=== PATIENT | male | born 1985 | race Caucasian/White ===

== ENCOUNTER 2019-05-02 03:35 | Emergency (ER) | payer BC ==
--- NOTE | 2019-05-02 03:50 | ED ---
General Adult HPI - General Chief complaint: Extremity Injury, Lower Stated complaint: ankle injury Time Seen by Provider: 05/02/19 03:36 Source: patient Mode of arrival: ambulatory Limitations: no limitations - History of Present Illness Initial comments: Dictation was produced using [employer] dictation software. please excuse any gramma tical, word or spelling errors. Chief Complaint: 33-year-old male presents with right ankle pain. History of Present Illness: His 33-year-old male he is calm and home going up the stairs when he inverted his right ankle. States he has pain towards his right lateral fibula and right lateral malleolus. Patient states he has significant pain since the day of injury. He did hear crunching sound when he hurt himself. The ROS documented in this emergency department record has been reviewed and confirmed by me. Those systems with pertinent positive or negative responses have been documented in the HPI. All other systems are other negative and/or noncontributory. PHYSICAL EXAM: General Impression: Alert and oriented x3, not in acute distress HEENT: Normocephalic atraumatic, extra-ocular movements intact, pupils equal and reactive to light bilaterally, mucous membranes moist. Cardiovascular: Heart regular rate and rhythm, S1&S2 audible, no murmurs, rubs or gallops Chest: Lungs clear to auscultation bilaterally, no rhonchi, no wheeze, no rales Abdomen: Bowel sounds present, abdomen soft, non-tender, non-distended, no organomegaly Musculoskeletal: Pulses present and equal in all extremities, no peripheral edema Right ankle: Slight tenderness over the right distal fibula and lateral malleolus. No pain with flexion of the forefoot, no midfoot pain Motor: no focal deficits noted Neurological: CN II-XII grossly intact, no focal motor or sensory deficits noted Skin: Intact with no visualized rashes Psych: Normal affect and mood ED course: 33-year-old male presents with right ankle pain after inversion injury. Signs upon arrival are within acceptable limits.Ankle x-ray was obtained showing nondisplaced fractured distal fibula with adjacent soft tissue swelling. Patient placed in OCL splint. Told to maintain nonweightbearing. Patient given prescription for crutches and [place]. Is given outpatient referral to orthopedic surgery. Temperature discussed. Patient clear for discharge. - Related Data Previous Rx's Medication Instructions Recorded HYDROcodone/APAP 5-325MG [[place] 1 tab PO Q6HR PRN 3 Days #12 tab 05/02/19 5-325] Allergies Allergy/AdvReac Type Severity Reaction Status Date / Time Sulfa (Sulfonamide Allergy Unknown Verified 05/02/19 04:29 Antibiotics) Childhood Review of Systems ROS Statement: Those systems with pertinent positive or pertinent negative responses have been documented in the HPI. ROS Other: All systems not noted in ROS Statement are negative. Past Medical History Past Medical History: No Reported History History of Any Multi-Drug Resistant Organisms: None Reported Past Surgical History: No Surgical Hx Reported Past Psychological History: No Psychological Hx Reported Smoking Status: Former smoker Past Alcohol Use History: Occasional Past Drug Use History: None Reported General Exam Limitations: no limitations Course Vital Signs 05/02/19 03:39 Temperature 98.7 F Pulse Rate 91 Respiratory 20 Rate Blood Pressure 139/83 O2 Sat by Pulse 98 Oximetry Procedures - Orthopedic Splinting/Casting Injury #1 Side: right Lower Extremity Injury Location: ankle Lower Extremity Immobilizer: posterior splint Other Orthopedic Equipment: crutches Disposition Clinical Impression: Ankle fracture Disposition: HOME SELF-CARE Condition: Good Instructions (If sedation given, give patient instructions): Ankle Fracture (ED) Prescriptions: HYDROcodone/APAP 5-325MG [[place] 5-325] 1 tab PO Q6HR PRN 3 Days #12 tab PRN Reason: Severe Pain Is patient prescribed a controlled substance at d/c from ED?: Yes If prescribed controlled substance>3 days was MAPS reviewed?: Prescribed <3 Days Referrals: Johnathan Pantoja DO [Medical Doctor] - 1-2 days Time of Disposition: 04:47
--- NOTE | 2019-05-02 04:03 | XR ---
EXAM: XR Right Ankle Complete, 3 or More Views CLINICAL HISTORY: ITS.REASON XR Reason: Pain TECHNIQUE: Frontal, lateral and oblique views of the right ankle. COMPARISON: No relevant prior studies available. FINDINGS: Bones/joints: Oblique fracture through the distal fibula. No significant displacement. Well-corticated bony lesion in the inferior aspect of the medial malleolus likely old avulsion type injury or accessory ossicle. No dislocation. Soft tissues: Moderate soft tissue swelling about the ankle, more pronounced laterally. IMPRESSION: Nondisplaced fracture of the distal fibula with adjacent soft tissue swelling
[2019-05-02] MEDS ORDERED: KETOROLAC 30 MG/ML 1 ML VIAL IM STA (04:31)
[2019-05-02 05:04] VITALS: BP 159/86; PULSE 69; RESP 18; TEMP 98.6
== END 2019-05-02 05:03 | disposition home or self-care (01) ==
LOC: EC 03:35
DX: S82.831A Other fracture of upper and lower end of right fibula, initial encounter for closed fracture (principal); Z87.891 Personal history of nicotine dependence; Z88.2 Allergy status to sulfonamides; W18.49XA Other slipping, tripping and stumbling without falling, initial encounter; Y93.01 Activity, walking, marching and hiking; Y92.009 Unspecified place in unspecified non-institutional (private) residence as the place of occurrence of the external cause
CPT/HCPCS: 99283; 29515; 96372; 73610; J1885